=== PATIENT | female | born 1970 | race Hispanic/Latino ===

== ENCOUNTER → 2017-05-16 | Outpatient (CLI) | payer OTHER, SELFPAY ==
[~2017-05-16] VITALS: Ht 12.7 cm; Wt 107.5 kg
[~2017-05-16] MED LIST: IRON1CAP30 PO; PANT40TA PO
== END | disposition home or self-care (01) ==
LOC: DTH 14:17
PROVIDERS: ATTEND Internal Medicine
DX: E11.9 Type 2 diabetes mellitus without complications (principal); E66.09 Other obesity due to excess calories
CPT/HCPCS: 97802

== ENCOUNTER 2017-05-23 09:18 | Day surgery (SDC) | payer OTHER, SELFPAY ==
[~2017-05-23] VITALS: Ht 165.1 cm; Wt 105.1 kg
[2017-05-23] VITALS (7 sets, daily range): BP systolic 116–145; BP diastolic 67–91
[~2017-05-23 09:18] MED LIST changes: +SODIUM CHLORIDE 0.9% 1000ML 1,000 ML IV ONE
[2017-05-23] MEDS ORDERED: ONDANSETRON HCL 4 MG/2 ML VIAL ONE ×2 (10:09→11:27)
[2017-05-23] MEDS ORDERED: PROPOFOL 10 MG/ML 20ML VIAL IV ONE (10:27)
[2017-05-23] MEDS ORDERED: SODIUM CHLORIDE 0.9% 1000ML 1,000 ML IV ONE (10:49)
== END 2017-05-23 14:05 ==
LOC: ENDO 09:18 → DAH 09:18 → ENDO 14:05
PROVIDERS: ATTEND Internal Medicine
DX: K31.89 Other diseases of stomach and duodenum (principal); E66.09 Other obesity due to excess calories; B96.81 Helicobacter pylori [H. pylori] as the cause of diseases classified elsewhere; Z98.890 Other specified postprocedural states; I10 Essential (primary) hypertension; E11.9 Type 2 diabetes mellitus without complications; Z79.899 Other long term (current) drug therapy
CPT/HCPCS: 43245; A4606; J2405 ×2; J2704; J7030 ×2

== ENCOUNTER → 2017-06-13 | Outpatient (CLI) | payer OTHER ==
[~2017-06-13] MED LIST changes: -SODIUM CHLORIDE 0.9% 1000ML 1,000 ML IV ONE
== END | disposition home or self-care (01) ==
LOC: DTH 13:03
PROVIDERS: ATTEND Surgery
DX: E11.9 Type 2 diabetes mellitus without complications (principal); E66.09 Other obesity due to excess calories
CPT/HCPCS: 97803

== ENCOUNTER 2017-11-23 05:45 | Day surgery (SDC) | payer BC, OTHER ==
[~2017-11-23] VITALS: Ht 165.1 cm; Wt 96.0 kg
[2017-11-23] VITALS (8 sets, daily range): BP systolic 91–133; BP diastolic 51–83
[~2017-11-23 05:45] MED LIST changes: +SODIUM CHLORIDE 0.9% 1000ML 1,000 ML IV ONE
[2017-11-23] MEDS ORDERED: MULT-1203 PO (07:26)
[2017-11-23] MEDS ORDERED: CALC200T42 PO (07:26)
[2017-11-23] MEDS ORDERED: CYAN-35 PO (07:26)
[2017-11-23] MEDS ORDERED: CHOL100040 PO (07:26)
[2017-11-23] MEDS ORDERED: PROPOFOL 10 MG/ML 20ML VIAL IV ONE (08:07)
[2017-11-23] MEDS ORDERED: SUCCINYLCHOLINE CHLORIDE 20 MG/ML 10 ML VIAL ONE (08:08)
[2017-11-23] MEDS ORDERED: FENTANYL CITRATE PF 50 MCG/1 ML 2ML VIAL ONE (08:16)
[2017-11-23] MEDS ORDERED: ONDANSETRON HCL MDV 20ML 2 MG/ML VIAL ONE (08:43)
== END 2017-11-23 09:20 | disposition home or self-care (01) ==
LOC: ENDO 05:45 → DAH 05:45 → ENDO 09:20
PROVIDERS: ATTEND Internal Medicine
DX: T18.2XXA Foreign body in stomach, initial encounter (principal); E66.01 Morbid (severe) obesity due to excess calories; I10 Essential (primary) hypertension; Z79.899 Other long term (current) drug therapy; E11.9 Type 2 diabetes mellitus without complications; Z98.890 Other specified postprocedural states
CPT/HCPCS: 36415; 43235; 82948 ×2; 84703; A4606; J0330; J2704; J3010; J7030

== ENCOUNTER 2017-11-27 05:41 | Day surgery (SDC) | payer OTHER ==
[2017-11-27] VITALS (7 sets, daily range): BP systolic 80–136; BP diastolic 42–77
[~2017-11-27] VITALS: Ht 165.1 cm; Wt 93.6 kg
[~2017-11-27 05:41] MED LIST changes: +CALC200T42 PO; +CHOL100040 PO; +CYAN-35 PO; -IRON1CAP30 PO; +MULT-1203 PO; -PANT40TA PO; -SODIUM CHLORIDE 0.9% 1000ML 1,000 ML IV ONE
[2017-11-27] MEDS ORDERED: SODIUM CHLORIDE 0.9% 1000ML 1,000 ML IV ONE (05:49)
[2017-11-27] MEDS ORDERED: PROPOFOL 10 MG/ML 20ML VIAL IV ONE ×2 (07:09→07:24)
[2017-11-27] MEDS ORDERED: FENTANYL CITRATE PF 50 MCG/1 ML 2ML VIAL ONE (07:09)
== END 2017-11-27 08:27 | disposition home or self-care (01) ==
LOC: DAH 05:41 → ENDO 05:41
PROVIDERS: ATTEND Internal Medicine
DX: T18.2XXA Foreign body in stomach, initial encounter (principal); I10 Essential (primary) hypertension; K76.0 Fatty (change of) liver, not elsewhere classified; E11.9 Type 2 diabetes mellitus without complications; E66.09 Other obesity due to excess calories; K29.01 Acute gastritis with bleeding; Z86.19 Personal history of other infectious and parasitic diseases; Z98.890 Other specified postprocedural states; Z88.8 Allergy status to other drugs, medicaments and biological substances; Z79.899 Other long term (current) drug therapy; Z68.34 Body mass index [BMI] 34.0-34.9, adult; X58.XXXA Exposure to other specified factors, initial encounter; Y93.89 Activity, other specified; Y92.89 Other specified places as the place of occurrence of the external cause; Y99.8 Other external cause status
CPT/HCPCS: 43247; 82948; A4606; J2704 ×2; J3010; J7030; 43235

== ENCOUNTER → 2017-11-29 | Outpatient (CLI) | payer OTHER | END | disposition home or self-care (01) | LOC: DTH 09:10 | PROVIDERS: ATTEND Surgery | DX: E66.09 Other obesity due to excess calories (principal); I10 Essential (primary) hypertension; E11.9 Type 2 diabetes mellitus without complications | CPT/HCPCS: 97803 ==